=== PATIENT | male | born 1960 ===

== ENCOUNTER 2018-09-04 14:09 | Emergency (ER) | payer MEDICAID, MEDICARE ==
[2018-09-04 14:24] VITALS: RESP 19
[2018-09-04] MEDS ORDERED: Sodium Chloride 0.9% 1,000 ML IV STA (14:48)
--- NOTE | 2018-09-04 14:49 | ED PDOC ---
HPI: Abdomen Time Seen by Provider: 09/04/18 14:41 Chief Complaint (Nursing): Abdominal Pain Chief Complaint (Provider): abdominal pain History Per: Patient (58 y/o male h/o cholecystectomy here with LLQ abd pain associated with multiple episodes of diarrhea x 1 week. No vomiting/fevers/chills noted.) Past Medical History Reviewed: Historical Data, Nursing Documentation, Vital Signs Vital Signs: Last Vital Signs Temp 98.0 F 09/04/18 14:23 Pulse 92 H 09/04/18 14:23 Resp 19 09/04/18 14:23 BP 138/74 09/04/18 14:23 Pulse Ox 97 09/04/18 14:23 - Medical History PMH: Hepatitis (C) - Family History Family History: States: No Known Family Hx - Immunization History Hx Tetanus Toxoid Vaccination: Yes Hx Influenza Vaccination: Yes Hx Pneumococcal Vaccination: No - Home Medications Home Medications: Ambulatory Orders Medication Instructions Recorded Oxycodone W/APAP 325 mg-5 mg 04/18/13 Dicyclomine [Bentyl] 20 mg PO DAILY 08/26/14 Nabumetone 500 mg PO DAILY 08/26/14 Omeprazole 40 mg PO DAILY 08/26/14 Famotidine [Pepcid] 20 mg PO BID #10 tab 09/04/18 - Allergies Allergies/Adverse Reactions: Allergies Allergy/AdvReac Type Severity Reaction Status Date / Time Iodinated Contrast- Oral and Allergy ANAPHYLAXIS Verified 09/04/18 14:22 IV Dye Review of Systems ROS Statement: Except As Marked, All Systems Reviewed And Found Negative Gastrointestinal: Positive for: Abdominal Pain, Diarrhea Physical Exam - Reviewed Nursing Documentation Reviewed: Yes Vital Signs Reviewed: Yes - Physical Exam Appears: Positive for: Well, Non-toxic, No Acute Distress Head Exam: Positive for: ATRAUMATIC, NORMAL INSPECTION, NORMOCEPHALIC Skin: Positive for: Normal Color, Warm, DRY Eye Exam: Positive for: EOMI, Normal appearance, PERRL ENT: Positive for: Normal ENT Inspection Neck: Positive for: Normal, Painless ROM Cardiovascular/Chest: Positive for: Regular Rate, Rhythm Respiratory: Positive for: CNT, Normal Breath Sounds Gastrointestinal/Abdominal: Positive for: Normal Exam, Soft, Tenderness (LLQ TENDERNESS) Back: Positive for: Normal Inspection Extremity: Positive for: Normal ROM Neurologic/Psych: Positive for: Alert, Oriented - Laboratory Results Result Diagrams: 09/04/18 15:04 09/04/18 15:04 - ECG O2 Sat by Pulse Oximetry: 97 - Progress ED Course And Treament: ct abd/pelvis IMPRESSION: 1. Prior cholecystectomy. 2. Collapsed descending colon without definite diverticular changes or local pericolic reaction. 3. No obstructive uropathy bilaterally. 4. Postoperative changes right lower quadrant occluding what appears to be a small segment of dilated small bowel unlikely reflect obstruction. 5. Borderline cirrhotic liver. 6. Enlarged prostate gland. 7. Mesenteric adenitis suspected. Disposition - Clinical Impression Clinical Impression: Mesenteric adenitis - Patient ED Disposition Is Patient to be Admitted: No - Disposition Disposition: Routine/Home Disposition Time: 17:02 Condition: FAIR Prescriptions: Famotidine [Pepcid] 20 mg PO BID #10 tab Instructions: Mesenteric Lymphadenitis (DC), Viral Gastroenteritis, Adult (DC) Forms: [facility] ED School/Work Excuse Print Language: [place]
[2018-09-04 15:44] LABS: BASO % 0.4 % (0.0-2.0); EOS # 0.1 K/uL (0.0-0.7); EOS % 1.1 % (0.0-4.0); HEMOGLOBIN 13.8 g/dL (12.0-18.0); LYMPH # 1.6 K/uL (1.0-4.3); LYMPH % 24.2 % (20.0-40.0); MEAN CELL VOLUME 91.7 fl (80.0-94.0); MEAN CORPUSCULAR HEMOGLOBIN 30.7 pg (27.0-31.0); MEAN CORPUSCULAR HGB CONC 33.5 g/dL (33.0-37.0); MEAN PLATELET VOLUME 7.9 fl (7.2-11.7); MONO # 0.5 K/uL (0.0-0.8); MONO % 7.3 % (0.0-10.0); NEUT # 4.5 K/uL (1.8-7.0); NRBC % 0.1 % (0.0-0.0); RBC 4.49 Mil/uL (4.40-5.90); RED CELL DISTRIBUTION WIDTH 13.3 % (11.5-14.5); WHITE BLOOD COUNT 6.8 K/uL (4.8-10.8)
[2018-09-04 15:50] LABS: ALB/GLOB RATIO 1.2 (1.0-2.1); ALT/SGPT 74 U/L (21-72); AST/SGOT 42 U/L (17-59); BLOOD UREA NITROGEN 16 mg/dl (9-20); CALCIUM 9.1 mg/dL (8.4-10.2); GFR NON-AFRICAN AMERICAN > 60; LIPASE 43 U/L (23-300)
--- NOTE | 2018-09-04 16:50 | CT ---
Date of service: 09/04/2018 PROCEDURE: CT Abdomen and Pelvis without intravenous contrast HISTORY: LLQ ABD PAIN WITH DIARRHEA X 1 WEEK COMPARISON: None. TECHNIQUE: Helical CT of the abdomen and pelvis was performed without oral or intravenous contrast as per referring physician request. Coronal and sagittal reformats were generated.. Contrast dose: None Radiation dose: Total exam DLP = 585.75 mGy-cm. This CT exam was performed using one or more of the following dose reduction techniques: Automated exposure control, adjustment of the mA and/or kV according to patient size, and/or use of iterative reconstruction technique. FINDINGS: LOWER THORAX: Sub cm calcified granuloma medial right lower lobe base. Lung bases are otherwise unremarkable as imaged. LIVER: Borderline cirrhotic liver pattern based on subtle lobulation of the periphery of the liver without gross varices demonstration. Lack images contrast limits interpretation. No gross mass within the hepatic parenchyma. GALLBLADDER AND BILE DUCTS: Prior cholecystectomy evident. PANCREAS: Unremarkable. No gross lesion or ductal dilatation. SPLEEN: Unremarkable. ADRENALS: Unremarkable. No mass. KIDNEYS AND URETERS: Unremarkable. No hydronephrosis. No solid mass. VASCULATURE: Unremarkable. No aortic aneurysm. No aortic atherosclerotic calcification or mural plaque present. BOWEL: Stomach is distended with retained food and fluid. No bowel obstruction evident. Retained fecal material scattered throughout much of the right hemicolon and is mild at the remainder. Left hemicolon is partially collapsed limit evaluation of the wall thickness. No pericolic reactive changes to suggest definite segmental colitis at this time. Lack of oral and intravenous contrast agents limits evaluation of the bowel. There is a mildly dilated loop of small of bowel at the right lower quadrant which may reflect small bowel which is postoperative including a anastomotic suture line. APPENDIX: The appendix not identified. No CT evidence of appendicitis. PERITONEUM: Small hiatal hernia is identified containing only a small segment of the mesentery. No perineural reaction ascites or free intra peritoneal gas collection identified. LYMPH NODES: Shotty pericecal and central mesenteric lymph nodes may reflect limited mesenteric adenitis. Clinically correlate further. BLADDER: Unremarkable. REPRODUCTIVE: Moderate prostate gland enlargement identified. BONES: No acute fracture. OTHER FINDINGS: None. IMPRESSION: 1. Prior cholecystectomy. 2. Collapsed descending colon without definite diverticular changes or local pericolic reaction. 3. No obstructive uropathy bilaterally. 4. Postoperative changes right lower quadrant occluding what appears to be a small segment of dilated small bowel unlikely reflect obstruction. 5. Borderline cirrhotic liver. 6. Enlarged prostate gland. 7. Mesenteric adenitis suspected.
[2018-09-04 18:19] VITALS: BP 114/61; PULSE 68; TEMP 98.1; O2SAT 96
[2018-09-04 20:10] LABS: SQUAMOUS EPITHIAL < 1 /hpf (0-5); URINE BILIRUBIN NEGATIVE (NEGATIVE); URINE BLOOD MODERATE (NEGATIVE); URINE CLARITY SLIGHTY-CLOUDY (Clear); URINE COLOR YELLOW (YELLOW); URINE GLUCOSE (UA) NEG (NEGATIVE); URINE HYALINE CAST 0-2 /hpf (0-2); URINE LEUKOCYTE ESTERASE NEG Leu/uL (Negative); URINE PROTEIN 30 mg/dL (NEGATIVE); URINE UROBILINOGEN 0.2-1.0 mg/dL (0.2-1.0)
== END 2018-09-04 18:02 | disposition home or self-care (01) ==
LOC: H.ER 14:09
DX: I88.0 Nonspecific mesenteric lymphadenitis (principal); N40.0 Benign prostatic hyperplasia without lower urinary tract symptoms; Z88.8 Allergy status to other drugs, medicaments and biological substances; K74.60 Unspecified cirrhosis of liver; Z90.49 Acquired absence of other specified parts of digestive tract
CPT/HCPCS: 74176; 80053; 81003; 83690; 85025; 87086; 87804; 96361; 96374; 99284; J7030

== ENCOUNTER 2018-10-02 08:17 | Day surgery (SDC) | payer MEDICARE ==
[2018-10-02] MEDS ORDERED: Lactated Ringer's 500 ML IV ONE (08:39)
[2018-10-02 08:49] VITALS: BMI 28.7
[2018-10-02] MEDS ORDERED: Propofol 10 mg/ml Inj (20 ML) ONE (10:30)
[2018-10-02 11:38] VITALS: BP 104/67; PULSE 60; RESP 16; TEMP 97; O2SAT 100
== END 2018-10-02 12:13 | disposition home or self-care (01) ==
LOC: H.ENDO 08:17
PROVIDERS: ATTEND Internal Medicine Gastroenterology
DX: D12.6 Benign neoplasm of colon, unspecified (principal); K63.89 Other specified diseases of intestine; K64.8 Other hemorrhoids; K52.9 Noninfective gastroenteritis and colitis, unspecified
CPT/HCPCS: 45385; 88305; J2001; J2704; J7120